=== PATIENT | female | born 1960 | race Caucasian/White ===

== ENCOUNTER → 2021-01-19 12:25 | Outpatient (BNVA) | payer MEDICARE, SELFPAY | PROVIDERS: PCP Nurse Practitioner Family; Referring Provider Nurse Practitioner Family; Visit Provider Anesthesiology | DX: G89.29 Other chronic pain (principal); M54.9 Dorsalgia, unspecified; F17.210 Nicotine dependence, cigarettes, uncomplicated; Z79.891 Long term (current) use of opiate analgesic; Z71.6 Tobacco abuse counseling | CPT/HCPCS: 99212 ==

== ENCOUNTER 2021-02-09 12:49 | Outpatient (CLI) | payer MEDICARE, SELFPAY ==
[2021-02-09 15:35] LABS: Basophils # 0.1 10^3/uL (0.0-0.1); Basophils % 0.5 %; Eosinophils # 0.1 10^3/uL (0.0-0.8); Hematocrit 44.3 % (37.0-47.0); Hemoglobin 14.9 g/dL (11.5-15.3); Lymphocytes # 3.2 10^3/uL (0.8-4.8); Lymphocytes % 29.2 %; Mean Corpuscular HGB Conc 33.6 g/dL (30.0-36.0); Mean Corpuscular Hemoglobin 36.2 pg (28.0-34.0); Mean Corpuscular Volume 107.5 fL (81-99); Mean Platelet Volume 11.7 fL (7.4-10.4); Monocytes # 0.9 10^3/uL (0.2-0.9); Monocytes % 8.2 %; Neutrophils # 6.58 10^3/uL (1.8-7.7); Neutrophils % 60.6 %; Nucleated Red Blood Cells % 0 %; Platelet Count 157 10^3/cmm (130-400); Red Blood Count 4.12 10^6/uL (4.1-5.3); Red Cell Distribution Width 12.1 % (12.1-15.1); White Blood Count 10.9 10^3/uL (4.0-10.0)
[2021-02-09 16:02] LABS: LAB Peripheral Smear Sent for Review
[2021-02-09 16:16] LABS: Alanine Aminotransferase 59 U/L (0-33); Albumin Level 3.8 g/dL (3.5-5.2); Alkaline Phosphatase 103 IU/L (35-105); Aspartate Amino Transferase 69 U/L (0-32); Blood Urea Nitrogen 7 mg/dL (8-23); Carbon Dioxide 29 mmol/L (22-29); Chloride 104 mmol/L (98-107); Globulin 2.7 g/dL (1.3-4.6); Glomerular Filtration Rate 161.7 mL/min (90-130); Glucose 129 mg/dL (65-115); Iron 148 ug/dL (37-145); Osmolality Calculated 288 mOsm/kg (285-295); Percent Saturation 58.4 % (20-50); Sodium 139 mmol/L (136-145); Total Bilirubin 0.5 mg/dL (0.15-1.2); Total Iron Binding Capacity 253 mcg/dl; Total Protein 6.5 g/dL (6.6-8.7); Unsaturated Iron Binding 105 ug/dL (112-347)
[2021-02-09 16:27] LABS: Hepatitis A Antibody IgM Non-Reactive (Nonreactive); Hepatitis B Core AB, Total Non-Reactive (Nonreactive); Hepatitis B Surface AB 3.5 (11.5-1000); Hepatitis B Surface Antigen Non-Reactive (Nonreactive); Hepatitis C Virus Antibody Non-Reactive (Nonreactive)
[2021-02-09 16:36] LABS: Ferritin 1307 ng/mL (15-150)
--- NOTE | 2021-02-11 07:28 | ONC CON_ITS ---
Dr. Jeffers New Patient Note Patient: Catherine Contreras Unit #: [id number]: 1960 Dicatated By: Riley Jeffers M.D.Date of Visit: Feb 09, 2021 Onc MED New Patient/Consult Referring Physician: Sasha Loya Chief Complaint: Thrombocytopenia. History of Present Illness: This is a 60-year-old woman with mild to moderately severe thrombocytopenia. She had moved to this area from [place] 3 months ago. She had been seen by Mariam Henry in December to establish primary care. Her initial laboratory studies from 12/27/2020 included CBC showing hemoglobin mildly elevated at 15.7 g with hematocrit 45%. The red cell indices were slightly macrocytic. The white blood cell count was 9100. The platelet count was decreased at 80,000. The automated differential showed 53% neutrophils, 40% lymphocytes, and 6% monocytes. Her comprehensive metabolic profile showed normal renal function with BUN 8 and creatinine 0.54 mg/dL. Bilirubin was normal at 0.8 mg/dL. Alkaline phosphatase was normal at 100 8U/L. The SGOT and SGPT levels were mildly elevated at 75/36 U/L and 63/35 U/L respectively. Her TSH and vitamin D levels were both normal. B12 and folate levels were normal. Her serum iron was elevated at 260 mcg/dL. Her further laboratory studies on 01/26/2021 included sed rate which was normal at 5 mm/h and CRP which was normal at 8.3 mg/L. She says she is feeling fine. She has somewhat limited activity due to chronic pain associated with fibromyalgia and with sequelae of previous traumatic vertebral compression fractures. Her ECOG score is 1. She has good appetite and her weight has been stable. She does not have fever, but she has been having hot flashes and sweating after going off her estrogen patch. She recently has had antibiotic therapy for a sinus infection. She has not had sore throat or difficulty swallowing. She does not complain of shortness of breath, cough, or chest pain. She had some diarrhea associated with her recent antibiotic therapy. She has no other GI or complaints. She has generalized pain with the fibromyalgia, and she has chronic back pain. She has headache on a daily basis, which tends to be worse after she eats. She says her left hand feels senior living numb most of the time and she complains that her feet go to sleep a lot. She has not been aware of any abnormal bruising or bleeding. Past Medical History: Her medical history includes chronic back pain, essential tremor, fibromyalgia, and hypertension. She has a history of cardiac arrhythmia and a history of diverticulitis. Past Surgical History: Her surgical/procedural history includes cholecystectomy in 2016, procedure for traumatic spinal compression fractures in 2006, partial colectomy for diverticulitis in 2004, appendectomy in 2000, cardiac ablation procedure in 2000, and hysterectomy in 1991. Medications: Baclofen 1 (10 mg) Tablet Oral at bedtime, Estradiol 1 (0.1 mg/g) Cream Vaginal q 7 days, Famciclovir 1 (500 mg) Tablet Oral daily, Propranolol HCl 1 (80 mg) Tablet Oral b.i.d., Requip 1 (0.5 mg) Tablet Oral at bedtime, traZODone HCl 1 (50 mg) Tablet Oral at bedtime Allergies: NSAIDs Social History: Ms. Contreras is and she is a disabled. She has history of smoking 1 pack of cigarettes daily for 46 years. She has 2 or 3 drinks of beer or wine daily. She has never been a heavy drinker. Family History: Father of heart disease at age 72. Mother age 73 with supranuclear palsy. One brother with dementia at age 80 and another brother has dementia and is still living at age 76. A sister with dementia at age 68. A nephew and a great nephew have Parkinson's disease. Her maternal grandmother had ovarian cancer. Her paternal grandmother had heart disease and diabetes. Her daughter has valvular heart disease and has undergone open heart surgery. Review Of Symptoms: Constitutional - She has been feeling fine. She has good energy and activity tolerance. Appetite is good and weight is stable. No fever. She has hot flashes and sweating at night, she recently got off her estrogen patch. ECOG score is 0, Eyes - No change in vision, ENMT - No hearing loss or tinnitus. She recently had treatment for sinus infection. No mouth sores. No sore throat or difficulty swallowing, Hematologic/Lymphatic - No abnormal bruising or bleeding, Respiratory - No shortness of breath. No cough. No pleuritic pain or hemoptysis, Cardiovascular - No angina pain. No palpitations, Gastrointestinal - No nausea or vomiting. No heartburn or acid reflux. She had diarrhea recently with the antibiotic. Bowels have otherwise been okay. No blood in the stool or black stools, Genitourinary (F) - No dysuria or hematuria. No urinary frequency. No urgency or incontinence, Musculoskeletal - She has generalized pain associated with her fibromyalgia, Integumentary - No skin rash or other skin changes, Neurologic - She has headache on a daily basis. No dizziness. She says her left hand feels senior living numb most of the time. Her feet go to sleep a lot. No other focal neurologic symptoms, Psychiatric - No anxiety or depression. No insomnia. Vital Signs: Performed on Feb 09, 2021 14:44: 5, 7, 26.98, 1.77 sq.m, 64 in, 99 %, 78 /min, 18 /min, 146/77 mm(hg) (HIGH), 97.9 F (LOW), and 157.2 lbs (HIGH). Physical Examination: Constitutional - She has very poor mobility, but she otherwise appears to be in good general health, Eyes - Sclerae nonicteric. Conjunctivae clear, ENMT - No lesions noted in the oral cavity, Neck - No mass or thyromegaly, Hematologic/Lymphatic - No cervical, clavicular, or axillary adenopathy, Respiratory - Lungs are clear with good air movement bilaterally, Cardiovascular - Heart rhythm is regular. There is no murmur, gallop, or rub noted, Abdomen - Soft and non-tender. Liver and spleen are not enlarged. There is no abdominal mass or ascites noted and there is no inguinal adenopathy, Back/Spine - She is very tender generally throughout the spine, Extremities - No edema. Pedal pulses are palpable bilaterally. There are no petechiae or ecchymoses noted, Integumentary - No rashes. No suspicious skin lesions noted, Neurologic - No focal neurologic deficits noted. Problem List: 1. Mild to moderately severe thrombocytopenia. 2. She also has mildly elevated liver enzymes and an elevated serum iron level. 3. Hypertension. 4. Essential tremor. 5. Fibromyalgia. 6. History of traumatic vertebral compression fractures. 7. History of diverticulitis. Problems Addressed with this Encounter and Plan: 1. Patient with mild to moderately severe thrombocytopenia. Etiology is uncertain. Artifactual thrombocytopenia due to platelet clumping would first need to be excluded. If her platelet count is confirmed to be low, it may be due to underlying liver disease/hypersplenism, as she does have mildly elevated liver enzymes. The other likely possibility would be a low-grade autoimmune thrombocytopenia. At least initially I will repeat her CBC and comprehensive metabolic profile and I will review the blood smear. I also will check a comprehensive hepatitis profile. She will have further evaluation as indicated, but I do anticipate that she will require either CT or ultrasound to evaluate the liver and spleen. At some point she may require bone marrow aspiration/biopsy. 2. She has an elevated serum iron level, which is raises the possibility of underlying hemochromatosis. I will repeat the serum iron studies and ferritin. If those are elevated I also will request an HFE gene mutation analysis. Signed By: Riley Jeffers M.D. <<Signature on File>>
== END 2021-02-09 12:50 | disposition home or self-care (01) ==
PROVIDERS: PCP Nurse Practitioner Family; Visit Provider Internal Medicine Medical Oncology
DX: D69.6 Thrombocytopenia, unspecified (principal); D50.9 Iron deficiency anemia, unspecified; R79.89 Other specified abnormal findings of blood chemistry; I10 Essential (primary) hypertension; G25.0 Essential tremor; M79.7 Fibromyalgia; Z87.19 Personal history of other diseases of the digestive system; Z79.899 Other long term (current) drug therapy
CPT/HCPCS: 36415; 80053; 81256; 82728; 83540; 83550; 85025; 86705; 86706; 86709; 86803; 87340; 99204

== ENCOUNTER → 2021-07-26 13:34 | Outpatient (BNVA) | payer MEDICARE, SELFPAY | PROVIDERS: PCP Nurse Practitioner Family; Visit Provider Internal Medicine | DX: M79.7 Fibromyalgia (principal); G89.29 Other chronic pain; R76.8 Other specified abnormal immunological findings in serum; Z11.59 Encounter for screening for other viral diseases; Z79.899 Other long term (current) drug therapy; F17.210 Nicotine dependence, cigarettes, uncomplicated; R79.89 Other specified abnormal findings of blood chemistry | CPT/HCPCS: 36415; 82306; 82533; 82550; 82607; 82728; 82784; 83516; 84443; 85651; 86140; 86704; 86803; 87340; 99203; 99204 ==

== ENCOUNTER → 2021-08-05 11:04 | Outpatient (BNVA) | payer MEDICARE, SELFPAY | PROVIDERS: PCP Nurse Practitioner Family; Visit Provider Internal Medicine | DX: R76.8 Other specified abnormal immunological findings in serum (principal); R79.89 Other specified abnormal findings of blood chemistry; Z79.899 Other long term (current) drug therapy | CPT/HCPCS: 80053; 82728; 83540; 85025 ==

== ENCOUNTER 2021-08-31 12:40 | Outpatient (CLI) | payer MEDICARE, SELFPAY ==
[2021-08-31 13:19] LABS: Basophils # 0.1 10^3/uL (0.0-0.1); Basophils % 0.7 %; Eosinophils # 0.1 10^3/uL (0.0-0.8); Eosinophils % 1.1 %; Hematocrit 45.9 % (37.0-47.0); Hemoglobin 15.6 g/dL (11.5-15.3); Lymphocytes # 3.1 10^3/uL (0.8-4.8); Lymphocytes % 29.2 %; Mean Corpuscular Hemoglobin 35.9 pg (28.0-34.0); Mean Corpuscular Volume 105.5 fl (81-99); Mean Platelet Volume 11.2 fL (7.4-10.4); Monocytes # 0.8 10^3/uL (0.2-0.9); Monocytes % 7.7 %; Neutrophils # 6.43 10^3/uL (1.8-7.7); Neutrophils % 60.6 %; Nucleated Red Blood Cells % 0 %; Platelet Count 137 10^3/cmm (130-400); Red Blood Count 4.35 10^6/uL (4.1-5.3); Red Cell Distribution Width 11.8 % (12.1-15.1); White Blood Count 10.6 10^3/uL (4.0-10.0)
[2021-08-31 13:36] LABS: LAB Peripheral Smear Sent for Review
[2021-08-31 13:43] LABS: Alanine Aminotransferase 40 U/L (0-33); Albumin Level 3.5 g/dL (3.5-5.2); Alkaline Phosphatase 158 IU/L (35-105); Anion Gap 15.6 (5-19); Aspartate Amino Transferase 108 U/L (0-32); Blood Urea Nitrogen 5 mg/dL (8-23); Calcium 8.4 mg/dL (8.5-10.5); Carbon Dioxide 26 mmol/L (22-29); Chloride 95 mmol/L (98-107); Globulin 3.1 g/dL (1.3-4.6); Glomerular Filtration Rate 124.6 mL/min (90-130); Glucose 97 mg/dL (65-115); Iron 211 ug/dL (37-145); Osmolality Calculated 271 mOsm/kg (285-295); Percent Saturation 92.1 % (20-50); Potassium 4.6 mmol/L (3.5-5.1); Sodium 132 mmol/L (136-145); Total Bilirubin 1.1 mg/dL (0.15-1.2); Total Iron Binding Capacity 229 mcg/dl; Total Protein 6.6 g/dL (6.6-8.7); Unsaturated Iron Binding 18 ug/dL (112-347)
[2021-08-31 19:28] LABS: Lactate Dehydrogenase 249 U/L (135-214)
[2021-09-01 14:43] LABS: Erythropoietin 14.3 mIU/mL (2.6-18.5)
--- NOTE | 2021-09-03 11:57 | ONC FU_ITS ---
Dr. Jeffers Patient Follow-Up Note Patient: Catherine Contreras Unit #: [id number]: 1960 Dicatated By: Riley Jeffers M.D.Date of Visit:Aug 31, 2021 Onc Med Follow-up/Prog Note Chief Complaint: Thrombocytopenia. History of Present Illness: This is a 61-year-old woman with mild to moderately severe thrombocytopenia. She had moved to this area from [place] 3 months ago. She had been seen by Mariam Henry in December to establish primary care. Her initial laboratory studies from 12/27/2020 included CBC showing hemoglobin mildly elevated at 15.7 g with hematocrit 45%. The red cell indices were slightly macrocytic. The white blood cell count was 9100. The platelet count was decreased at 80,000. The automated differential showed 53% neutrophils, 40% lymphocytes, and 6% monocytes. Her comprehensive metabolic profile showed normal renal function with BUN 8 and creatinine 0.54 mg/dL. Bilirubin was normal at 0.8 mg/dL. Alkaline phosphatase was normal at 100 8U/L. The SGOT and SGPT levels were mildly elevated at 75/36 U/L and 63/35 U/L respectively. Her TSH and vitamin D levels were both normal. B12 and folate levels were normal. Her serum iron was elevated at 260 mcg/dL. Her further laboratory studies on 01/26/2021 included sed rate which was normal at 5 mm/h and CRP which was normal at 8.3 mg/L. I had seen her initially on 02/09/2021. Her CBC showed normal hemoglobin at 14.9 g with hematocrit 44.3%. The red cell indices were macrocytic. The white blood cell count was slightly elevated at 10,900 with a normal differential. Platelet count at that time was normal at 157,000. Her comprehensive metabolic profile showed mild transaminitis. Her serum iron studies showed elevated transferrin saturation of 58.4% and the ferritin level was significantly elevated at 1307 ng/mL. A viral hepatitis profile was negative. Her HFE gene analysis was negative for the C282Y and the H63D mutations. Her medical history is otherwise significant for history of traumatic vertebral compression fractures. Her other medical illnesses have been limited to hypertension, essential tremor, and fibromyalgia. She has additional history of cardiac arrhythmia for which she underwent an ablation procedure in 2000. She also has a history of diverticulitis. She has a history of smoking 1 pack of cigarettes daily for 46 years. She has reported alcohol intake of 2-3 drinks of beer or wine daily. She has never been a heavy drinker. She has seen for a follow-up visit. She says she has felt sick ever since she moved here, which was sometime around October of last year. She tends to get dry heaves about an hour after eating, pretty much on a daily basis. She has been seen by Dr. Garibay and she is being scheduled for an EGD. She complains that she has no energy. She has limited activity, but she is able to do some light work. ECOG score is 1. She has not had fever or night sweats. She reports having constant sinus drainage. She has not had sore mouth or throat. She does not complain of cough and she says her breathing has been okay. She has chest pain occasionally, but that she attributes to heartburn. It has improved somewhat taking [id number] Nexium twice a day. Her bowel and bladder function have been okay. She complains of being generally achy. She has pain in her arms and inner knees and feet, and she also has back pain. She says she usually has headache. She has numbness/tingling in her hands and feet. She has not had any abnormal bruising or bleeding. Medications: Baclofen 1 (10 mg) Tablet Oral at bedtime, Estradiol 1 (0.1 mg/g) Cream Vaginal q 7 days, Famciclovir 1 (500 mg) Tablet Oral daily, Propranolol HCl 1 (80 mg) Tablet Oral b.i.d., Requip 1 (0.5 mg) Tablet Oral at bedtime, traZODone HCl 1 (50 mg) Tablet Oral at bedtime Allergies: NSAIDs Vital Signs: Performed on Aug 31, 2021 12:15 Height - 64.00 in Weight - 160.2 lbs (HIGH) BSA - 1.78 sq.m BMI - 27.50 Temperature - 97.5 F (LOW) Pulse - 51 /min (LOW) Respiration - 17 /min BP - 137/85 mm(hg) O2 Sat - 98 % Pain - 0 Fatigue - 7 Physical Examination: Constitutional - She has limited mobility, Eyes - Sclerae nonicteric. Conjunctivae clear, ENMT - No lesions noted in the oral cavity, Hematologic/Lymphatic - No cervical, clavicular, or axillary adenopathy, Respiratory - Lungs are clear with good air movement bilaterally, Cardiovascular - Heart rhythm is regular. There is no murmur, gallop, or rub noted, Abdomen - Soft. There is mild tenderness in the left upper quadrant. Liver and spleen are not enlarged. There is no abdominal mass or ascites noted and there is no inguinal adenopathy, Extremities - No edema, Neurologic - No focal neurologic deficits noted. Problem List: 1. Mild to moderately severe thrombocytopenia. 2. She also has mildly elevated liver enzymes and an elevated serum iron level. 3. Hypertension. 4. Essential tremor. 5. Fibromyalgia. 6. History of traumatic vertebral compression fractures. 7. History of diverticulitis. Problems Addressed with this Encounter and Plan: Patient with mild thrombocytopenia. Etiology is uncertain. Her platelet counts have been quite variable, and at least some component may be due to platelet clumping. She also has mildly elevated hemoglobin/hematocrit levels and a slightly elevated white blood cell count. In addition, her serum iron studies show an elevated transferrin saturation and her ferritin level has been significantly elevated on multiple occasions, though her HFE gene analysis was negative for the C282Y and the H63D mutations. As yet, the cause of the elevated ferritin has not been determined, as her inflammatory markers have not been significantly elevated. She does have mild transaminitis, specific cause for which also not been determined. At this point I will repeat her CBC, comprehensive metabolic profile, and serum iron studies. I also will request a molecular profile for myeloproliferative neoplasms. She will have further evaluation as indicated. Ultimately, the best option may be a liver biopsy. Signed By: Riley Jeffers M.D. <<Signature on File>>
[2021-09-04 08:07] LABS: Copper Level 136 mcg/dL (70-175)
[2021-09-08 18:37] LABS: CALR Exon 9 Mutation NOT DETECTED (NOT DETECTED); CSF3R Exon 14/17 Mutation NOT DETECTED (NOT DETECTED); JAK2 Exon 12 Mutation NOT DETECTED (NOT DETECTED); JAK2 V617 Block Specimen ID NG; JAK2 V617 Clinical Indication NG; JAK2 V617 Mutation NOT DETECTED (NOT DETECTED); JAK2 V617 Specimen Source NG; MPL Exon 12 Mutation NOT DETECTED (NOT DETECTED)
== END 2021-08-31 12:41 | disposition home or self-care (01) ==
PROVIDERS: PCP Nurse Practitioner Family; Visit Provider Internal Medicine Medical Oncology
DX: D69.6 Thrombocytopenia, unspecified (principal); D72.829 Elevated white blood cell count, unspecified; I10 Essential (primary) hypertension; G25.0 Essential tremor; M79.7 Fibromyalgia; R74.8 Abnormal levels of other serum enzymes; R79.89 Other specified abnormal findings of blood chemistry; F17.210 Nicotine dependence, cigarettes, uncomplicated; Z79.899 Other long term (current) drug therapy
CPT/HCPCS: 36415; 80053; 81270; 82525; 82668; 83540; 83550; 83615; 85025; 99214

== ENCOUNTER → 2021-09-14 10:47 | Outpatient (BNVA) | payer MEDICARE, SELFPAY | PROVIDERS: PCP Nurse Practitioner Family; Visit Provider Surgery | DX: R10.13 Epigastric pain (principal); Z20.822 Contact with and (suspected) exposure to COVID-19 | CPT/HCPCS: 87635 ==

== ENCOUNTER → 2021-09-20 14:06 | Outpatient (BNVA) | payer MEDICARE, SELFPAY | PROVIDERS: PCP Nurse Practitioner Family; Visit Provider Internal Medicine | DX: E83.19 Other disorders of iron metabolism (principal); R76.8 Other specified abnormal immunological findings in serum; F17.210 Nicotine dependence, cigarettes, uncomplicated | CPT/HCPCS: 99214 ==

== ENCOUNTER 2021-09-21 06:55 | Day surgery (SDC) | payer MEDICARE, SELFPAY ==
[2021-09-16 12:24] VITALS: BMI 26.6
--- NOTE | 2021-09-21 07:21 | W.PM.OPSFHP ---
Same Day Surgery H&P Indication for Procedure/HPI DATE OF PROCEDURE: September 21, 2021 CHIEF COMPLAINT/INDICATIONFOR SURGICAL PROCEDURE: screening PREOP DIAGNOSIS: diagnostic PLANNED PROCEDURE: Operation Date: 09/21/21 08:30 Proposed Procedures p EGD 74957 R10.13(Not Applicable) - Raffi Garibay MD Medications/Allergies* Home Medications Medication Instructions Recorded Confirmed Type baclofen 10 mg tablet 20 mg PO .HS PRN tab 01/19/21 09/20/21 History propranolol 80 mg tablet 40 mg PO DAILY tab 01/19/21 09/20/21 History ropinirole 1 mg tablet 1 mg PO DAILY 01/19/21 09/20/21 History trazodone 50 mg tablet 25 mg PO DAILY 01/19/21 09/20/21 History ascorbic acid (vitamin C) 500 mg mg PO 07/26/21 09/20/21 History capsule cetirizine 10 mg capsule (Zyrtec) 10 mg PO DAILY PRN 07/26/21 09/20/21 History cholecalciferol (vitamin D3) 25 25 mcg PO DAILY 07/26/21 09/20/21 History mcg (1,000 unit) capsule omega-3 fatty acids 500 mg capsule 500 mg PO DAILY 07/26/21 09/20/21 History tramadol 50 mg tablet 150 mg PO Q6H PRN tab 07/26/21 09/20/21 History valacyclovir 500 mg tablet 500 mg PO DAILY 07/26/21 09/20/21 History vitamin B complex (B 1 tab PO DAILY 07/26/21 09/20/21 History Complex-Vitamin B12) vitamin E 200 unit capsule 200 unit PO DAILY 07/26/21 09/20/21 History zinc 50 mg tablet 50 mg PO DAILY 07/26/21 09/20/21 History Allergies/Adverse Reactions Allergy/AdvReac Type Severity Reaction Status Date / Time NSAIDS (Non-Steroidal Allergy Intermediate NAUSEA Verified 09/20/21 13:52 Anti-Inflamma Pertinent History/Comorbid Conditions* Medical History (Updated 09/20/21 @ 14:29 by Hernán Modi MD) Chronic joint pain Chronic low back pain Fibromyalgia, primary Hypertension Restless leg syndrome Rheumatoid arthritis Surgical History (Updated 07/26/21 @ 11:52 by Raffi Garibay MD) H/O esophagogastroduodenoscopy H/O: hysterectomy History of appendectomy History of back surgery History of colon resection History of Alayna fundoplication Hx of cholecystectomy Status post ablation of atrial fibrillation Status post colonoscopy Family History (Updated 07/26/21 @ 14:00 by My Dunbar LPN) Diabetes Grandmother Grandfather Grandmother Heart disease Grandfather Grandmother Father Daughter Psychiatric illness Brother Heart attack Grandmother Cancer Mother Hypertension Grandfather Grandmother Thyroid disorder Sister Denies family history of Rheumatoid arthritis Lupus Hyperlipidemia Stroke Social History Smoking and tobacco status: current every day smoker cigarettes Packs smoked per day: 1 Alcohol intake: current Alcohol intake frequency: 3 or more drinks per day Alcohol type: beer and wine Marital status: History of recent travel: No Pertinent Exam Findings alert, oriented x 3 and regular rate & rhythm Recommendations Surgery/Procedure today Coding Level of Care Code Acute Internal Specialist for Darius Zambrano
[2021-09-21 07:25] VITALS: BP 142/68; PULSE 63; RESP 16; TEMP 36.4; O2SAT 95
[2021-09-21] MEDS: sodium chloride 0.9% 1,000 ML 30 ML IV (07:26)
--- NOTE | 2021-09-21 09:34 | ANES.PREANE2 ---
Pre-Anesthetic Assessment Height/Weight: Height 1.63 m Weight 70.307 kg Temp Pulse Resp BP Pulse Ox 97.6 F 63 16 142/68 95 09/21/21 07:25 09/21/21 07:25 09/21/21 07:25 09/21/21 07:25 09/21/21 07:25 Preop Diagnosis: upper gi symptoms Operation Date: 09/21/21 08:30 Proposed Procedures p EGD 09992 R10.13(Not Applicable) - Raffi Garibay MD Familial anesthetic complications: None Was Beta Francisco taken within 24 hours: Yes Was Clonidine taken within 24 hours: N/A Last intake: Intake Last Liquid Date 09/20/21 Last Liquid Time 20:00 Last Solid Date 09/20/21 Last Solid Time 20:00 Social Alcohol (a bottle of wine a night) and Tobacco Exam alert, oriented x 3, clear to auscultation bilaterally and regular rate & rhythm Airway Mallampati: Class II Dentition: other (1 pulled tooth) Pulmonary None reported CV/HEM Atrial Fibrillation (s/p ablation) and Hypertension GI Hx alayna fundoplication Anesthetic Plan ASA status: 3 Anesthesia: MAC Medications/Allergies Home Medications Medication Instructions Recorded Confirmed Last Taken Type baclofen 10 mg tablet 20 mg PO .HS PRN tab 01/19/21 09/21/21 09/20/21 History propranolol 80 mg tablet 40 mg PO DAILY tab 01/19/21 09/21/21 09/20/21 History ropinirole 1 mg tablet 1 mg PO DAILY 01/19/21 09/21/21 09/20/21 History trazodone 50 mg tablet 25 mg PO DAILY 01/19/21 09/21/21 09/20/21 History ascorbic acid (vitamin C) 500 mg 500 mg PO DAILY 07/26/21 09/20/21 09/20/21 History capsule cetirizine 10 mg capsule (Zyrtec) 10 mg PO DAILY PRN 07/26/21 09/21/21 09/20/21 History cholecalciferol (vitamin D3) 25 25 mcg PO DAILY 07/26/21 09/21/21 09/20/21 History mcg (1,000 unit) capsule omega-3 fatty acids 500 mg capsule 500 mg PO DAILY 07/26/21 09/21/21 09/20/21 History tramadol 50 mg tablet 150 mg PO Q6H PRN tab 07/26/21 09/21/21 09/20/21 History valacyclovir 500 mg tablet 500 mg PO DAILY 07/26/21 09/21/21 09/20/21 History vitamin B complex (B 1 tab PO DAILY 07/26/21 09/21/21 09/20/21 History Complex-Vitamin B12) vitamin E 200 unit capsule 200 unit PO DAILY 07/26/21 09/21/21 09/20/21 History zinc 50 mg tablet 50 mg PO DAILY 07/26/21 09/21/21 09/20/21 History Allergies Allergy/AdvReac Type Severity Reaction Status Date / Time NSAIDS (Non-Steroidal Allergy Intermediate NAUSEA Verified 09/20/21 13:52 Anti-Inflamma Current Medications Generic Name Dose Route Start Last Admin Trade Name Freq PRN Reason Stop Dose Admin Sodium Chloride 1,000 mls @ 30 mls/hr 09/21/21 07:30 09/21/21 07:26 Sodium Chloride 0.9% IV 09/22/21 07:29 30 mls/hr .Q24H CORY Administration PFSH Anesthesia Medical History (Updated 09/20/21 @ 14:29 by Hernán Modi MD) Chronic joint pain Chronic low back pain Fibromyalgia, primary Hypertension Restless leg syndrome Rheumatoid arthritis Surgical History H/O esophagogastroduodenoscopy H/O: hysterectomy History of appendectomy History of back surgery History of colon resection History of Alayna fundoplication Hx of cholecystectomy Status post ablation of atrial fibrillation Status post colonoscopy Family History (Updated 07/26/21 @ 14:00 by My Dunbar LPN) Mother Cancer Grandmother Diabetes Heart attack Grandfather Diabetes Hypertension Heart disease Grandmother Diabetes Hypertension Heart disease Brother Psychiatric illness Sister Thyroid disorder Father Heart disease Daughter Heart disease Denies family history of Rheumatoid arthritis Lupus Hyperlipidemia Stroke Social History Smoking and tobacco status: current every day smoker cigarettes Packs smoked per day: 1 Alcohol intake: current Alcohol intake frequency: 3 or more drinks per day Alcohol type: beer and wine Marital status: History of recent travel: No Data Anesthesia Cardiac Studies: No Data to Display
[2021-09-21 11:24] VITALS: BP 95/53; PULSE 67; RESP 20; TEMP 36.6; O2SAT 94
[2021-09-21 11:40] VITALS: BP 115/67; PULSE 66; RESP 18; TEMP 36.6; O2SAT 94
--- NOTE | 2021-09-21 12:56 | ANE.PACU2 ---
Inpatient post-anesthesia follow up: Airway intact: Yes Vital signs: Temperature 97.8 F Pulse Rate 66 Respiratory Rate 18 Blood Pressure 115/67 Pulse Oximetry 94 Oxygen Delivery Me thod Room Air Oxygen Flow Rate 4 Fraction of Inspir ed Oxygen Hydration adequate: Yes Nausea and vomiting: No Pain level: 1
== END 2021-09-21 11:52 | disposition home or self-care (01) ==
PROVIDERS: PCP Nurse Practitioner Family; Visit Provider Surgery
PROC: 0DJ08ZZ Inspection of Upper Intestinal Tract, Via Natural or Artificial Opening Endoscopic (ICD-10-PCS; CPT 43235; principal; 2021-09-21 08:30)
DX: R10.13 Epigastric pain (principal); K29.70 Gastritis, unspecified, without bleeding; I48.91 Unspecified atrial fibrillation; I10 Essential (primary) hypertension; M79.7 Fibromyalgia; M06.9 Rheumatoid arthritis, unspecified; Z82.49 Family history of ischemic heart disease and other diseases of the circulatory system; Z83.3 Family history of diabetes mellitus; F17.210 Nicotine dependence, cigarettes, uncomplicated
CPT/HCPCS: 43239; 88305; J7030

== ENCOUNTER 2021-10-18 10:53 | Outpatient (CLI) | payer MEDICARE, SELFPAY ==
--- NOTE | 2021-10-18 11:17 | MR_ITS ---
WS: [id number] MRI abdomen with and without contrast. HISTORY: Hepatic iron build-up, nausea and vomiting for 8 months. RIGHT upper quadrant pain for 3 mon ths. Multi phase imaging of the liver performed with and without contrast. Contrast: MultiHance, 16 cc's IV. Liver is mildly enlarged measuring 18.2 cm in length. Very minimal heterogeneity throughout the liver . No masses or bile duct dilatation. Portal vein is normal. The liver signal intensity remains slightly greater and the adjacent skeletal muscle on all sequences but particularly at the T2 sequences and the gradient echo sequences. This suggests no significant i papito deposition. Also, on the in phase sequence of the liver there is increased signal as compared to the out of phase sequence of the liver and also the spleen. This suggests more hepatic steatosis then hemochromatosis. There is loss of signal on the out of phase imaging of the liver and the spleen. On the T2 sequences the liver is of normal to slightly increased signal which does not indicate hemochr omatosis. No ascites or adenopathy. Spleen is normal size at 11.3 cm. Both kidneys are normal size. Normal adre nal glands. MR/MR abdomen wo/w con* [id number] IMPRESSION: 1. Moderate hepatomegaly. 2. The MRI sequences suggest hepatic steatosis rather than hemochromatosis.
== END 2021-10-18 10:54 | disposition home or self-care (01) ==
PROVIDERS: PCP Nurse Practitioner Family; Visit Provider Internal Medicine Medical Oncology
DX: E83.10 Disorder of iron metabolism, unspecified (principal); R11.2 Nausea with vomiting, unspecified; R10.11 Right upper quadrant pain; R16.0 Hepatomegaly, not elsewhere classified
CPT/HCPCS: 74183; A9577

== ENCOUNTER 2021-10-27 12:10 | Outpatient (CLI) | payer MEDICARE, SELFPAY ==
--- NOTE | 2021-10-27 12:15 | MM_ITS ---
WS: [id number] BILATERAL 3D TOMOSYNTHESIS DIGITAL SCREENING MAMMOGRAPHY WITH CAD CLINICAL INFORMATION: SCREENING HISTORY: Screening mammogram. No current complaints. COMPARISON: TECHNIQUE: Bilateral CC and MLO views. FINDINGS: Scattered fibroglandular densities bilaterally. Punctate and lucent centered calcifications. No suspi cious focal mass, asymmetry, calcifications, or architectural distortion. No evidence of malignancy. MM/[place] [id number] IMPRESSION: BI-RADS: 2-Benign FOLLOW UP: 1 Year Follow-up Recommend return to annual screening mammography.
== END 2021-10-27 12:11 | disposition home or self-care (01) ==
LOC: RADSHAW 12:10
PROVIDERS: PCP Nurse Practitioner Family; Visit Provider Nurse Practitioner Family
DX: Z12.31 Encounter for screening mammogram for malignant neoplasm of breast (principal)
CPT/HCPCS: 77063; 77067

== ENCOUNTER 2021-12-13 10:59 | Outpatient (CLI) | payer MEDICARE, SELFPAY ==
[2021-12-13 11:39] LABS: Basophils # 0.1 10^3/uL (0.0-0.1); Basophils % 0.6 %; Eosinophils # 0.1 10^3/uL (0.0-0.8); Eosinophils % 0.7 %; Hemoglobin 16.1 g/dL (11.5-15.3); Lymphocytes # 2.2 10^3/uL (0.8-4.8); Lymphocytes % 22.9 %; Mean Corpuscular HGB Conc 34.3 g/dL (30.0-36.0); Mean Corpuscular Hemoglobin 37.7 pg (28.0-34.0); Mean Corpuscular Volume 110.1 fl (81-99); Mean Platelet Volume 11.9 fL (7.4-10.4); Monocytes # 0.7 10^3/uL (0.2-0.9); Neutrophils % 68.4 %; Nucleated Red Blood Cells % 0 %; Platelet Count 153 10^3/cmm (130-400); Red Blood Count 4.27 10^6/uL (4.1-5.3); Red Cell Distribution Width 12.2 % (12.1-15.1); White Blood Count 9.5 10^3/uL (4.0-10.0)
[2021-12-13 11:52] LABS: Erythrocyte Sedimentation Rate 5 mm/hr (0-15)
[2021-12-13 12:12] LABS: Alanine Aminotransferase 39 U/L (0-33); Albumin Level 3.6 g/dL (3.5-5.2); Alkaline Phosphatase 174 IU/L (35-105); Aspartate Amino Transferase 80 U/L (0-32); Blood Urea Nitrogen 2 mg/dL (8-23); C Reactive Protein 7.7 mg/L (0.0-4.9); Calcium 8.7 mg/dL (8.5-10.5); Carbon Dioxide 28 mmol/L (22-29); Chloride 97 mmol/L (98-107); Globulin 3.8 g/dL (1.3-4.6); Glomerular Filtration Rate 124.6 mL/min (90-130); Glucose 149 mg/dL (65-115); Iron 147 ug/dL (37-145); Osmolality Calculated 279 mOsm/kg (285-295); Percent Saturation 64.7 % (20-50); Sodium 135 mmol/L (136-145); Total Bilirubin 0.9 mg/dL (0.15-1.2); Total Iron Binding Capacity 227 mcg/dl; Total Protein 7.4 g/dL (6.6-8.7); Unsaturated Iron Binding 80 ug/dL (112-347)
[2021-12-13 12:13] LABS: Anion Gap 14.5 (5-19); Potassium 4.5 mmol/L (3.5-5.1)
[2021-12-13 12:44] LABS: Ferritin 1606 ng/mL (15-150)
--- NOTE | 2021-12-13 14:47 | XR_ITS ---
WS: [id number] Lumbar spine, 3 views, 12/13/2021 Clinical Data: R76.8 - Other specified abnormal immunological findings i... Comparison: None. Findings: No new compression fractures or subluxation is seen. There is loss of anterior and central vertebral body height of L3 which may be an old compression fracture. There is vertebroplasty cement in the L3 and L4 vertebral bodies. There is a levoscoliosis. Anterior osteoarthritic changes present from L1 th rough L4. There is disc space narrowing at L2-L3.. The transverse processes and SI joints are normal. XR/XR lumbar spine 2-3V* [id number] Impression: 1. Levoscoliosis with osteoarthritis L1-L4. 2. Vertebroplasty cement in L3 and L4. 3. Possible anterior and central compression fracture of the L3 vertebral body.
--- NOTE | 2021-12-13 14:47 | XR_ITS ---
WS: [id number] Left hand, 2 views, 12/13/2021 Clinical Data: R76.8 - Other specified abnormal immunological findings i... Comparison: None. Findings: No fractures or dislocations are seen. The soft tissues are unremarkable. The joint spaces are normal No periarticular demineralization or calcifications are seen. XR/XR hand LT 2V [id number] Impression: Negative left hand.
--- NOTE | 2021-12-13 14:47 | XR_ITS ---
WS: [id number] Right hand, 2 views, 12/13/2021 Clinical Data: R76.8 - Other specified abnormal immunological findings i... Comparison: None. Findings: No fractures or dislocations are seen. The soft tissues are unremarkable. The joint space s are normal There is osteoarthritic change at the base of the right first metacarpal with periarticular calcifica tions. 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
--- NOTE | 2021-12-14 08:45 | ONC FU_ITS ---
Dr. Jeffers Patient Follow-Up Note Patient: Catherine Contreras Unit #: [id number]: 1960 Dicatated By: Riley Jeffers M.D.Date of Visit:Dec 13, 2021 Onc Med Follow-up/Prog Note Chief Complaint: Thrombocytopenia/elevated ferritin. History of Present Illness: This is a 61-year-old woman with mild to moderately severe thrombocytopenia. She also has a significantly elevated serum ferritin level. She had recently moved to this area from [place]. She was seen by Mariam Henry in December to establish primary care. Her initial laboratory studies from 12/27/2020 included CBC showing hemoglobin mildly elevated at 15.7 g with hematocrit 45%. The red cell indices were slightly macrocytic. The white blood cell count was 9100. The platelet count was decreased at 80,000. The automated differential showed 53% neutrophils, 40% lymphocytes, and 6% monocytes. Her comprehensive metabolic profile showed normal renal function with BUN 8 and creatinine 0.54 mg/dL. Bilirubin was normal at 0.8 mg/dL. Alkaline phosphatase was normal at 100 8U/L. The SGOT and SGPT levels were mildly elevated at 75/36 U/L and 63/35 U/L respectively. Her TSH and vitamin D levels were both normal. B12 and folate levels were normal. Her serum iron was elevated at 260 mcg/dL. Her further laboratory studies on 01/26/2021 included sed rate which was normal at 5 mm/h and CRP which was normal at 8.3 mg/L. I had seen her initially on 02/09/2021. Her CBC showed normal hemoglobin at 14.9 g with hematocrit 44.3%. The red cell indices were macrocytic. The white blood cell count was slightly elevated at 10,900 with a normal differential. Platelet count at that time was normal at 157,000. Her comprehensive metabolic profile showed mild transaminitis. Her serum iron studies showed elevated transferrin saturation of 58.4% and the ferritin level was significantly elevated at 1307 ng/mL. A viral hepatitis profile was negative. Her HFE gene analysis was negative for the C282Y and the H63D mutations. Further evaluation with MRI of the abdomen on 10/18/2021 showed mildly enlarged liver measuring 18.2 cm in length. There was very minimal heterogeneity throughout the liver with signal intensity slightly greater than adjacent skeletal muscle on all sequences, particularly the T2 sequences in the gradient echo sequences. The findings were felt to be consistent with hepatic steatosis rather than iron deposition/hemochromatosis. Her medical history is otherwise significant for history of traumatic vertebral compression fractures. Her other medical illnesses include hypertension, essential tremor, and fibromyalgia. She has additional history of cardiac arrhythmia for which she underwent an ablation procedure in 2000. She also has a history of diverticulitis. She has a history of smoking 1 pack of cigarettes daily for 46 years. She has reported alcohol intake of 2-3 drinks of beer or wine daily. She has never been a heavy drinker. INTERIM HISTORY: At her follow-up visit in August 2021 her hemoglobin remained slightly elevated at 15.6 g with hematocrit 45.9%. The red cell indices were slightly macrocytic, as before. The white blood cell count was slightly elevated at 10,600 and the platelet count was borderline low at 137,000. Comprehensive metabolic profile continuing to show mildly elevated liver enzymes. He erythropoietin level was in normal range at 14.3 mIU/mL. A molecular profile for myeloproliferative neoplasms was unrevealing. She is seen for a follow-up visit. She continues to complain of severe fatigue, and she continues to have limited activity. Her ECOG score is 2. She complains that she has no appetite. Her weight is stable. She does not have fever or night sweats. She has not had sore mouth or throat, and she does not complain of cough. She does complain that her breathing is labored, and she occasionally has pain in the substernal area. She reports having some nausea. She has no other GI or complaints. She has pain everywhere, /. The most severe pain lately has been in the lower back. She also reports having constant headache, described as a dull ache, also 24/7. She says her left hand goes numb a lot. She has no abnormal bruising or bleeding. Medications: Baclofen 1 (10 mg) Tablet Oral at bedtime, Estradiol (0.1 mg/24hr) Patch Biweekly Transdermal Take as Directed, Famciclovir 1 (500 mg) Tablet Oral daily, Propranolol HCl 1 (80 mg) Tablet Oral b.i.d., Requip 1 (0.5 mg) Tablet Oral at bedtime, traMADol HCl 1 Tablet (of 50 mg) Oral q 6 hours PRN, traZODone HCl 1 (50 mg) Tablet Oral at bedtime Allergies: NSAIDs Vital Signs: Performed on Dec 13, 2021 15:54 Height - 64.00 in Weight - 155.4 lbs (LOW) BSA - 1.76 sq.m BMI - 26.67 Temperature - 97.9 F (LOW) Pulse - 69 /min Respiration - 18 /min BP - 145/77 mm(hg) (HIGH) O2 Sat - 99 % Pain - 7 Fatigue - 6 Physical Examination: Constitutional - She has limited mobility, Eyes - Sclerae nonicteric. Conjunctivae clear, ENMT - No lesions noted in the oral cavity, Hematologic/Lymphatic - No cervical, clavicular, or axillary adenopathy, Respiratory - Lungs are clear with good air movement bilaterally, Cardiovascular - Heart rhythm is regular. There is no murmur, gallop, or rub noted, Abdomen - Soft. There is mild tenderness in the left upper quadrant. Liver and spleen are not enlarged. There is no abdominal mass or ascites noted and there is no inguinal adenopathy, Back/Spine - She has exquisite tenderness over the spine, Extremities - No edema, Neurologic - No focal neurologic deficits noted. Lab/Imaging: Test performed on Dec 13, 2021 11:13 Ferritin 1606 ng/mL Iron Binding Capacity (TIBC) 227 mcg/dl CO2 28 mmol/L Creatinine 0.5 mg/dL Cr Clearance (Est) 128.15 mL/min eGFR 124.6 mL/min Calcium 8.7 mg/dL Protein, Total 7.4 g/dL Albumin 3.6 g/dL Globulin 3.8 g/dL Bilirubin, Total 0.9 mg/dL WBC 9.5 10 3/uL RBC 4.27 10 6/uL HGB 16.1 g/dL HCT 47.0 % MCV 110.1 fl MCH 37.7 pg MCHC 34.3 g/dL RDW 12.2 % Platelet Count 153 10 3/cmm MPV 11.9 fL Neutrophils 6.50 10 3/uL Lymphocytes 2.2 10 3/uL Monocytes 0.7 10 3/uL Eosinophils 0.1 10 3/uL Basophils 0.1 10 3/uL Neutrophil % 68.4 % Lymphocyte % 22.9 % Monocyte % 7.0 % Eosinophil % 0.7 % Basophils % 0.6 % NRBC % 0 % Test performed on Aug 31, 2021 13:02 Copper 136 mcg/dL Iron 211 mcg/dL LDH (Total) 249 U/L Sodium 132 mmol/L Potassium 4.6 mmol/L % Iron Saturation 92.1 % Chloride 95 mmol/L UIBC 18 mcg/dL Anion Gap 15.6 BUN 5 mg/dL Glucose 97 mg/dL Osmolality - Calculated 271 mOsm/kg ALT (SGPT) 40 U/L AST (SGOT) 108 U/L Alkaline Phosphatase 158 IU/L Erythropoietin 14.3 mIU/mL Problem List: 1. Mild to moderately severe thrombocytopenia. 2. She has mildly elevated liver enzymes, presumed to be due to hepatic steatosis. 3. Elevated serum iron and ferritin. 3. Hypertension. 4. Essential tremor. 5. Fibromyalgia. 6. History of traumatic vertebral compression fractures. 7. History of diverticulitis. Problems Addressed with this Encounter and Plan: 1. Patient with mild thrombocytopenia. Her platelet counts have been quite variable, and at least some component may be due to platelet clumping. She also has mildly elevated hemoglobin/hematocrit levels and a slightly elevated white blood cell count. Etiology is uncertain. A molecular profile for myeloproliferative neoplasms was unrevealing. As long as her blood counts remain stable it will be managed expectantly. 2. Elevated transferrin saturation and serum ferritin. The clinical significance is uncertain, as her HFE gene analysis was negative for the C282Y and the H63D mutations. Furthermore her abdominal MRI showed no evidence for hepatic iron deposition. However, with the ferritin level continuing to increase, I think that she should either see a bucket turner for liver biopsy or start therapy to start therapeutic phlebotomies. Alternatively, she could just become a regular blood donor. I will let her consider those options. 3. She has mild transaminitis. This is presumed to be due to hepatic steatosis, based on MRI findings. Signed By: Riley Jeffers M.D. <<Signature on File>>
== END 2021-12-13 11:00 | disposition home or self-care (01) ==
PROVIDERS: PCP Nurse Practitioner Family; Visit Provider Internal Medicine Medical Oncology
DX: M54.59 Other low back pain (principal); F17.210 Nicotine dependence, cigarettes, uncomplicated; R76.8 Other specified abnormal immunological findings in serum; E83.19 Other disorders of iron metabolism; G89.29 Other chronic pain; D69.6 Thrombocytopenia, unspecified; D69.1 Qualitative platelet defects; R74.01 Elevation of levels of liver transaminase levels; Z79.899 Other long term (current) drug therapy
CPT/HCPCS: 36415; 72100; 73120; 80053; 82728; 83540; 83550; 85025; 85651; 86140; 99214

== ENCOUNTER 2021-12-20 08:58 | Outpatient (CLI) | payer MEDICARE, SELFPAY ==
--- NOTE | 2021-12-20 09:07 | NMCV_ITS ---
NM marga perf SPECT r/s* [id number] Catherine Contreras Age: 61 Gender: F : 1960 Exam Date: 12/20/2021 09:07 Ordering Phys: Luz Castaneda Technologist: AG Seth Exam Location: [facility] Indications: CHEST PAIN STRESS TEST Please see separate stress test report in [facility] for full findings IMAGE PROTOCOL Rest/Stress 1 Lexiscan Day Radiopharmaceutical Dose (mCi) Administration Site Administered by Rest: Tc-99m 10.8 IV AG Gomez Sestamibi Stress:Tc-99m 32.4 IV AG Seth Sestamiac Rest: 20-Dec-2021 60 Discovery 630 Stress: 20-Dec-2021 30 Discovery 630 0.4mg Lexiscan. Supine position only as patient was unable to lay prone. SPECT RESULTS Technical Quality: Excellent Raw Data Analysis: Normal Image Corrections: No attenuation or motion correction applied Summed Stress Score: 0 Summed Rest Score: 0 Summed Difference Score: 0 PERFUSION FINDINGS SPECT images demonstrate homogeneous tracer distribution throughout the myocardium. FUNCTIONAL RESULTS (calculated via Gated SPECT) Stress Image LV EF (%): 90 Stress EDV (mL):61 TID: 1.18 Stress ESV (mL):6 FUNCTIONAL FINDINGS: There is normal left ventricular systolic function. IMPRESSIONS 1. Normal myocardial perfusion imaging with no evidence of ischemia 2. LV systolic function is normal Melo Hicks MD (Electronically Signed) Final Date: 20 Dec 2021 14:11 S
--- NOTE | 2021-12-20 09:07 | ECG_ITS ---
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 Interpretive Statements NAME OF STUDY: LEXISCAN SESTAMIBI STRESS TEST INDICATION: [Chest Pain, ] Procedure: At the baseline, the blood pressure was 139/67 mmHg with a heart rate of 60 bpm. The electrocardiogram showed normal sinus rhythm, normal axis with normal ST and T's. The Lexiscan was infused over a period of 20 seconds. A total of 0.4 mg of Lexiscan was infused. The stress phase was continued for a total of 5 minutes. Heart rate was at the end of stress phase was 75 bpm and a blood pressure of 168/84 mmHg. The EKG at the peak infusion revealed since normal sinus rhythm with no significant ST-T wave changes. Sestamibi was injected 20 seconds after the Lexiscan infusion. Blood pressure at the end of recovery phase was 175/84 mmHg with a heart rate of 74 bpm. Conclusion: 1. Normal EKG response to Lexiscan infusion 2. No Lexiscan induced chest pain or cardiac arrhythmia. 3. Normal blood pressure and heart rate response. 4. Sestamibi/sestamibi perfusion scan pending; see separate report. Electronically Signed On 01-16-2022 20:03:57 CDT by Melo Hicks M.D. [id number]
[2021-12-20] MEDS: regadenoson 0.4 Mg/5 ml Syringe IVP (10:40)
[2021-12-20 11:03] VITALS: BP 175/84; PULSE 76
== END 2021-12-20 08:59 | disposition home or self-care (01) ==
LOC: CDL 09:03
PROVIDERS: PCP Nurse Practitioner Family; Visit Provider Nurse Practitioner Family
DX: R07.9 Chest pain, unspecified (principal)
CPT/HCPCS: 78452; 93017; A9500; J2785

== ENCOUNTER 2022-11-08 13:14 | Outpatient (CLI) | payer MEDICARE, SELFPAY ==
--- NOTE | 2022-11-08 13:30 | MM_ITS ---
WS: [id number] BILATERAL SCREENING DIGITAL TOMOSYNTHESIS MAMMOGRAM WITH CAD HISTORY: SCREENING COMPARISON: 10/27/2021, 01/02/2018 Bilateral CC and MLO views with tomosynthesis and synthetic mammography submitted. Computer aided det ection analyzed. Breast composition: The breasts are heterogeneously dense, which may obscure small masses. No suspici ous masses, microcalcifications or architectural distortion. Benign calcifications in each breast. MM/[place] [id number] IMPRESSION: BI-RADS: 2-Benign FOLLOW UP: 1 Year Follow-up
== END 2022-11-08 13:15 | disposition home or self-care (01) ==
LOC: RAD 13:19
PROVIDERS: PCP Family Medicine; Visit Provider Nurse Practitioner Family
DX: Z12.31 Encounter for screening mammogram for malignant neoplasm of breast (principal)
CPT/HCPCS: 77063; 77067

== ENCOUNTER 2023-04-20 09:56 | Day surgery (SDC) | payer MEDICARE, SELFPAY ==
[2023-04-19 13:39] VITALS: BMI 20.9
[2023-04-20 10:14] VITALS: BP 141/82; PULSE 93; RESP 18; TEMP 36.3; O2SAT 96
--- NOTE | 2023-04-20 10:19 | US_ITS ---
WS: [id number] ULTRASOUND-GUIDED PARACENTESIS CLINICAL INFORMATION: alcoholic cirrhosis of liver with ascities COMPARISON: None. Procedure Informed consent: The risks, benefits, and alternatives of the procedure were discussed with the edita ent. Verbal and written consent was obtained. Timeout: A timeout was performed to confirm the correct patient, procedure, and site. Preparation: A suitable skin site was identified. The patient was prepped and draped in usual sterile fashion. Lidocaine 1% was used for local anesthesia. Catheter: 4 [place] One-step Yueh catheter. Side: LEFT lower quadrant. Fluid Volume: 4550 ml Color: Clear yellow DISPOSITION: Discarded safely. Complications: None. Patient disposition: Discharged from the department in stable condition. IMPRESSION: Uncomplicated ultrasound-guided paracentesis. Removal of 4550 cc
== END 2023-04-20 12:20 | disposition home or self-care (01) ==
PROVIDERS: Radiology Neuroradiology; PCP Family Medicine; Visit Provider Family Medicine
PROC: (CPT 49082; principal; 2023-04-20 11:00)
DX: K70.31 Alcoholic cirrhosis of liver with ascites (principal)
CPT/HCPCS: 49083; 96365; P9047